=== PATIENT | male | born 1930 | race Two or more races ===

== ENCOUNTER 2020-03-13 16:48 | Inpatient (IN) | payer MEDICAID, MEDICARE, OTHER ==
[~2020-03-13] VITALS: Ht 195.6 cm; Wt 63.0 kg
[2020-03-13] MEDS ORDERED: FUROSEMIDE 40MG/4ML VIAL IV ONE (18:30)
[2020-03-13] MEDS ORDERED: ASPIRIN 81MG TABLET PO ONE (18:30)
[2020-03-13] MEDS ORDERED: NITROGLYCERIN OINT 1GM/INCH UDPKT TD ONE (18:30)
[2020-03-13 18:42] LABS: HEMATOCRIT. 54.4 % (42.0-52.0); HEMOGLOBIN. 16.9 g/dL (14.0-18.0); MEAN CORPUSCULAR HEMOGLOBIN 30.9 pg (28.0-32.0); MEAN CORPUSCULAR VOLUME 99.2 fL (80.0-94.0); MEAN PLATELET VOLUME 8.7 fl (7.4-10.4); PLATELET 114 x1000/uL (130-400); RED BLOOD CELL COUNT 5.48 mill/uL (4.7-6.1); RED CELL DISTRIBUTION WIDTH 16.5 % (11.6-14.6)
[2020-03-13 18:48] LABS: CHLORIDE 98 mEq/L (98-107)
[2020-03-13 18:55] LABS: PLATELET ESTIMATE DECREASED
[2020-03-13 18:57] LABS: INR 1.2; PARTIAL THROMBOPLASTIN TIME 28.5 sec (23.4-31.0)
[2020-03-13 19:18] LABS: BG BASE EXCESS 7.1 mmol/L (-2.0-2.0); BG CARBOXYHEMOGLOBIN 1.5 % (0.5-1.5); BG DEOXYHEMOGLOBIN 1.3 % (0.0-5.0); BG FRACTION INSPIRED OXYGEN 32; BG HCO3 ACT 39.9 mmol/L (22.0-26.0); BG METHEMOGLOBIN 0.5 % (0.0-1.5); BG OXYGEN SATURATION 98.7 % (92.0-98.5); BG OXYHEMOGLOBIN 96.7 % (94.0-97.0); BG PCO2 96.5 mmHg (35.0-45.0); BG PH 7.234 (7.350-7.450); BG SAMPLE SITE LEFT RADIAL; BG TOTAL HEMOGLOBIN 18.1 g/dL (12.0-18.0); BG VENT MODE NASAL CANNULA
[2020-03-13] MEDS ORDERED: CEFTRIAXONE 1 G PREMIX 50 ML IV ONE (20:00)
[2020-03-13] MEDS ORDERED: AZITHROMYCIN 500 MG in DEXT 5% WATER 250 ML IV ONE (20:00)
[2020-03-13] MEDS ORDERED: ETOMIDATE 2MG/ML 10ML VIAL IV ONE (21:00)
[2020-03-13] MEDS ORDERED: VANCOMYCIN 1 G PREMIX 200 ML IV ONE (21:00)
[2020-03-13] MEDS ORDERED: PIPERACILLIN/TAZ 3.375G PREMIX 50 ML IV ONE (21:00)
[2020-03-13] MEDS ORDERED: VECURONIUM BROMIDE 10 MG/VIAL IV ONE (21:00)
[2020-03-13] MEDS ORDERED: DEXAMETHASONE 10 MG/ML VIAL IV ONE (21:45)
[2020-03-13] MEDS ORDERED: PROPOFOL 10MG/ML 100ML 100 ML IV SCH (21:45)
[2020-03-13] MEDS ORDERED: ENOXAPARIN 80MG/0.8ML SYR SUBCUT ONE (21:45)
[2020-03-13 22:20] LABS: BG BASE EXCESS 9.5 mmol/L (-2.0-2.0); BG CARBOXYHEMOGLOBIN 1.3 % (0.5-1.5); BG DEOXYHEMOGLOBIN 0.2 % (0.0-5.0); BG FRACTION INSPIRED OXYGEN 100; BG HCO3 ACT 39.1 mmol/L (22.0-26.0); BG METHEMOGLOBIN 0.5 % (0.0-1.5); BG OXYGEN SATURATION 99.8 % (92.0-98.5); BG PCO2 71.2 mmHg (35.0-45.0); BG PH 7.358 (7.350-7.450); BG PO2 358.8 mmHg (75.0-100.0); BG TOTAL HEMOGLOBIN 18.8 g/dL (12.0-18.0); BG VENT MODE VENT - AC
[2020-03-14] MEDS ORDERED: AZITHROMYCIN 500 MG in DEXT 5% WATER 250 ML IV SCH ×2
[2020-03-14] MEDS ORDERED: VECURONIUM BROMIDE 10 MG/VIAL IV ONE
[2020-03-14] MEDS ORDERED: LORAZEPAM 2MG/ML CPJ IV PRN
[2020-03-14] MEDS ORDERED: PROPOFOL 10MG/ML 100ML 100 ML IV SCH
[2020-03-14] MEDS ORDERED: ETOMIDATE 2MG/ML 10ML VIAL IV ONE
[2020-03-14] MEDS ORDERED: CEFTRIAXONE 1 G PREMIX 50 ML IV SCH
[2020-03-14] MEDS ORDERED: DIPHENHYDRAMINE 50MG/ML VIAL IV PRN
[2020-03-14] MEDS ORDERED: MAGNESIUM/ALUMINUM HYDROXIDE/SIMETHICONE 30ML UDC PO PRN
[2020-03-14] MEDS ORDERED: CLONIDINE 0.1MG TABLET PO PRN
[2020-03-14 05:06] LABS: BASOPHILS % 0.6 % (0.0-2.0); EOSINOPHILS % 0.2 % (0.0-5.0); HEMATOCRIT. 53.8 % (42.0-52.0); LYMPHOCYTES % 11.6 % (20.0-50.0); MEAN CORPUSCULAR HEMOGLOBIN 31.2 pg (28.0-32.0); MEAN CORPUSCULAR VOLUME 98.8 fL (80.0-94.0); MEAN PLATELET VOLUME 8.1 fl (7.4-10.4); MONOCYTES % 13.1 % (2.0-8.0); NEUTROPHILS % 74.5 % (40.0-76.0); PLATELET 100 x1000/uL (130-400); RED BLOOD CELL COUNT 5.44 mill/uL (4.7-6.1); RED CELL DISTRIBUTION WIDTH 16.8 % (11.6-14.6)
[2020-03-14 05:14] LABS: CHLORIDE 98 mEq/L (98-107)
[2020-03-14] MEDS ORDERED: SODIUM CHLORIDE 0.9% INJ 3ML FLUSH IVF SCH (06:00)
[2020-03-14 11:51] LABS: HEMATOCRIT. 51.1 % (42.0-52.0); HEMOGLOBIN. 16.3 g/dL (14.0-18.0); MEAN CORPUSCULAR HEMOGLOBIN 31.2 pg (28.0-32.0); MEAN CORPUSCULAR VOLUME 97.8 fL (80.0-94.0); MEAN PLATELET VOLUME 8.4 fl (7.4-10.4); PLATELET 111 x1000/uL (130-400); RED BLOOD CELL COUNT 5.23 mill/uL (4.7-6.1); RED CELL DISTRIBUTION WIDTH 16.5 % (11.6-14.6)
[2020-03-14 12:29] LABS: PLATELET ESTIMATE DECREASED
[2020-03-14] MEDS ORDERED: OXYMETAZOLINE HCL NASAL SPRAY 15ML BOTHNSTRLS PRN (14:30)
[2020-03-14] MEDS ORDERED: CEFTRIAXONE 2 G PREMIX 50 ML IV SCH (14:30)
[2020-03-14] MEDS ORDERED: DEXT 5%/0.45% NACL 1000ML 1,000 ML IV SCH ×2 (14:41)
[2020-03-14] MEDS ORDERED: ONDANSETRON HCL 4MG/2ML INJ IV PRN ×2 (14:45)
[2020-03-14] MEDS ORDERED: GUAIFENESIN 200MG/10ML SUGAR FREE UDC PO PRN ×2 (14:45)
[2020-03-14] MEDS ORDERED: MORPHINE SULFATE 2 MG/ML CPJ (NOT FOR IM USE) IV PRN ×2 (14:45)
[2020-03-14] MEDS ORDERED: IPRATROPIUM/ALBUTEROL 0.5-3(2.5)MG/3ML NEB HHN PRN ×2 (14:45)
[2020-03-14] MEDS ORDERED: NOREPINEPHRINE 8MG/250ML PMX 250 ML IV PRN ×2 (14:45)
[2020-03-14] MEDS ORDERED: DOCUSATE SODIUM 100MG CAPSULE PO PRN ×2 (14:45)
[2020-03-14] MEDS ORDERED: ACETAMINOPHEN 325MG TABLET PO PRN ×2 (14:45)
[2020-03-14] MEDS ORDERED: HYDROCODONE/ACETAMINOPHEN 10/325MG TABLET PO PRN ×2 (14:45)
[2020-03-14] MEDS: DEXT 5%/0.45% NACL 1000ML 1,000 ML IV SCH (15:00)
[2020-03-14 19:22] LABS: CLARITY URINE CLEAR (CLEAR); COLOR URINE DARK YELLOW (YELLOW); KETONES URINE TRACE (NEGATIVE); LEUKOCYTE ESTERASE URINE 1+ (NEGATIVE); NITRITE URINE NEGATIVE (NEGATIVE); OCCULT BLOOD URINE 2+ (NEGATIVE); PH URINE >=9.0 (4.5-8.0); PROTEIN URINE 1+ (NEGATIVE); SPECIFIC GRAVITY URINE 1.026 (1.005-1.030)
[2020-03-14 20:11] LABS: *AMPHETAMINES SCREEN URINE NEGATIVE (NEGATIVE); *BENZODIAZEPINES SCREEN URINE NEGATIVE (NEGATIVE); *COCAINE SCREEN URINE NEGATIVE (NEGATIVE)
[2020-03-14 20:12] LABS: METHADONE URINE SCREEN NEGATIVE (NEGATIVE); OPIATES URINE SCREEN NEGATIVE (NEGATIVE); PHENCYCLIDINE URINE SCREEN NEGATIVE (NEGATIVE)
[2020-03-14 20:13] LABS: *BARBITURATES SCREEN URINE NEGATIVE (NEGATIVE); CANNABINOID URINE SCREEN NEGATIVE (NEGATIVE)
[2020-03-14] MEDS: SODIUM CHLORIDE 0.9% INJ 3ML FLUSH IVF SCH (22:41)
[2020-03-15] VITALS (35 sets, daily range): BP systolic 79–174; BP diastolic 46–107
[2020-03-15] MEDS ORDERED: AZITHROMYCIN 500 MG in DEXT 5% WATER 250 ML IV SCH (01:00)
[2020-03-15 04:49] LABS: BASOPHILS % 0.2 % (0.0-2.0); EOSINOPHILS % 0.5 % (0.0-5.0); HEMATOCRIT. 55.5 % (42.0-52.0); HEMOGLOBIN. 17.7 g/dL (14.0-18.0); LYMPHOCYTES % 9.2 % (20.0-50.0); MEAN CORPUSCULAR HEMOGLOBIN 30.9 pg (28.0-32.0); MEAN CORPUSCULAR VOLUME 96.7 fL (80.0-94.0); MEAN PLATELET VOLUME 8.5 fl (7.4-10.4); MONOCYTES % 13.4 % (2.0-8.0); NEUTROPHILS % 76.7 % (40.0-76.0); PLATELET 138 x1000/uL (130-400); RED BLOOD CELL COUNT 5.73 mill/uL (4.7-6.1); RED CELL DISTRIBUTION WIDTH 16.5 % (11.6-14.6)
[2020-03-15 04:54] LABS: CHLORIDE 95 mEq/L (98-107)
[2020-03-15 05:01] LABS: LDL CHOLESTEROL 62 mg/dL (5-100)
[2020-03-15 05:03] LABS: CREATINE KINASE 103 IU/L (39-308); HDL CHOLESTEROL 65 mg/dL (40-59)
[2020-03-15 05:05] LABS: CREATINE KINASE MB FRACTION 5.7 ng/mL (0.5-3.6)
[2020-03-15] MEDS: SODIUM CHLORIDE 0.9% INJ 3ML FLUSH IVF SCH ×3 (06:00→21:08)
[2020-03-15] MEDS: IPRATROPIUM/ALBUTEROL 0.5-3(2.5)MG/3ML NEB HHN SCH ×5 (08:21→20:38)
[2020-03-15] MEDS: METHYLPREDNISOLONE SOD SUCC 40 MG/ML VIAL IV SCH ×5 (08:29→21:36)
[2020-03-15] MEDS: PANTOPRAZOLE SODIUM 40 MG/VIAL IV SCH ×2 (08:29→09:34)
[2020-03-15 09:03] LABS: BG BASE EXCESS 10.7 mmol/L (-2.0-2.0); BG DEOXYHEMOGLOBIN 1.4 % (0.0-5.0); BG FRACTION INSPIRED OXYGEN 40; BG HCO3 ACT 33.8 mmol/L (22.0-26.0); BG METHEMOGLOBIN 0.5 % (0.0-1.5); BG OXYGEN SATURATION 98.6 % (92.0-98.5); BG OXYHEMOGLOBIN 97.1 % (94.0-97.0); BG PCO2 38.7 mmHg (35.0-45.0); BG PH 7.559 (7.350-7.450); BG SAMPLE SITE RIGHT RADIAL; BG TOTAL HEMOGLOBIN 18.3 g/dL (12.0-18.0); BG VENT MODE VENT - AC
[2020-03-15] MEDS: AZITHROMYCIN 500 MG in DEXT 5% WATER 250 ML IV SCH (09:34)
[2020-03-15] MEDS: PROPOFOL 10MG/ML 100ML 100 ML IV SCH ×2 (10:57→21:12)
[2020-03-15] MEDS ORDERED: PROPOFOL 10MG/ML 100ML 100 ML IV PRN (12:00)
[2020-03-15] MEDS ORDERED: CEFTRIAXONE 2 G in DEXTROSE 5% WATER 50 ML IV SCH (18:00)
[2020-03-15] MEDS: CEFTRIAXONE 2 G in DEXTROSE 5% WATER 50 ML IV SCH (19:42)
[2020-03-16] VITALS (94 sets, daily range): BP systolic 73–204; BP diastolic 49–125
[2020-03-16] MEDS: IPRATROPIUM/ALBUTEROL 0.5-3(2.5)MG/3ML NEB HHN SCH ×7 (00:26→23:59)
[2020-03-16] MEDS: DEXT 5%/0.45% NACL 1000ML 1,000 ML IV SCH ×2 (02:43→14:45)
[2020-03-16] MEDS: PROPOFOL 10MG/ML 100ML 100 ML IV SCH ×2 (02:43→09:20)
[2020-03-16] MEDS: SODIUM CHLORIDE 0.9% INJ 3ML FLUSH IVF SCH ×3 (05:13→21:09)
[2020-03-16 05:22] LABS: HEMATOCRIT. 50.5 % (42.0-52.0); HEMOGLOBIN. 16.3 g/dL (14.0-18.0); MEAN CORPUSCULAR VOLUME 96.2 fL (80.0-94.0); MEAN PLATELET VOLUME 8.7 fl (7.4-10.4); PLATELET 127 x1000/uL (130-400); RED BLOOD CELL COUNT 5.26 mill/uL (4.7-6.1); RED CELL DISTRIBUTION WIDTH 16.6 % (11.6-14.6)
[2020-03-16 05:27] LABS: CHLORIDE 94 mEq/L (98-107)
[2020-03-16] MEDS: METHYLPREDNISOLONE SOD SUCC 40 MG/ML VIAL IV SCH ×3 (06:12→21:32)
[2020-03-16] MEDS ORDERED: NOREPINEPHRINE 8 MG in DEXT 5% WATER 242 ML IV PRN (07:45)
[2020-03-16 07:53] LABS: PLATELET ESTIMATE SLIGHTLY DECREASED
[2020-03-16] MEDS ORDERED: POTASSIUM CHLORIDE 20MEQ TABLET SR PO ONE (08:00)
[2020-03-16] MEDS ORDERED: POTASSIUM CHLORIDE 20MEQ/PACKET GT NR (08:15)
[2020-03-16 08:30] LABS: BG BASE EXCESS 10.4 mmol/L (-2.0-2.0); BG CARBOXYHEMOGLOBIN 3.1 % (0.5-1.5); BG DEOXYHEMOGLOBIN 4.3 % (0.0-5.0); BG HCO3 ACT 34.3 mmol/L (22.0-26.0); BG METHEMOGLOBIN 0.1 % (0.0-1.5); BG OXYHEMOGLOBIN 92.5 % (94.0-97.0); BG PCO2 42.5 mmHg (35.0-45.0); BG PH 7.525 (7.350-7.450); BG PO2 75.1 mmHg (75.0-100.0); BG SAMPLE SITE RIGHT BRACHIAL; BG TOTAL HEMOGLOBIN 15.5 g/dL (12.0-18.0); BG VENT MODE VENT - AC
[2020-03-16] MEDS: PANTOPRAZOLE SODIUM 40 MG/VIAL IV SCH (08:35)
[2020-03-16] MEDS: AZITHROMYCIN 500 MG in DEXT 5% WATER 250 ML IV SCH (09:37)
[2020-03-16] MEDS ORDERED: MIDODRINE HCL 5MG TABLET PO SCH (10:15)
[2020-03-16] MEDS: BLOOD SUGAR DIAGNOSTIC STRIP TEST SCH ×3 (11:30→23:01)
[2020-03-16] MEDS: INSULIN LISPRO 100 UNITS/ML SUBCUT SCH ×3 (12:00→23:02)
[2020-03-16] MEDS: MIDODRINE HCL 5MG TABLET NG SCH ×2 (13:51→21:28)
[2020-03-16] MEDS: CEFTRIAXONE 2 G in DEXTROSE 5% WATER 50 ML IV SCH (18:01)
[2020-03-16] MEDS: LORAZEPAM 2MG/ML CPJ IV PRN (19:26)
[2020-03-17] VITALS (58 sets, daily range): BP systolic 92–168; BP diastolic 60–95
[2020-03-17] MEDS: LORAZEPAM 2MG/ML CPJ IV PRN (01:56)
[2020-03-17] MEDS: IPRATROPIUM/ALBUTEROL 0.5-3(2.5)MG/3ML NEB HHN SCH ×5 (04:28→20:36)
[2020-03-17] MEDS: BLOOD SUGAR DIAGNOSTIC STRIP TEST SCH ×4 (05:07→23:58)
[2020-03-17] MEDS: SODIUM CHLORIDE 0.9% INJ 3ML FLUSH IVF SCH ×3 (05:07→22:03)
[2020-03-17] MEDS: INSULIN LISPRO 100 UNITS/ML SUBCUT SCH ×4 (05:08→23:58)
[2020-03-17] MEDS: MIDODRINE HCL 5MG TABLET NG SCH ×3 (05:10→22:00)
[2020-03-17] MEDS: DEXTROSE 50% WATER 50ML SYRINGE IV PRN (05:10)
[2020-03-17] MEDS: METHYLPREDNISOLONE SOD SUCC 40 MG/ML VIAL IV SCH ×2 (05:35→20:50)
[2020-03-17 06:20] LABS: HEMATOCRIT. 50.1 % (42.0-52.0); HEMOGLOBIN. 15.9 g/dL (14.0-18.0); MEAN CORPUSCULAR VOLUME 97.6 fL (80.0-94.0); MEAN PLATELET VOLUME 8.5 fl (7.4-10.4); PLATELET 102 x1000/uL (130-400); RED BLOOD CELL COUNT 5.13 mill/uL (4.7-6.1); RED CELL DISTRIBUTION WIDTH 16.1 % (11.6-14.6)
[2020-03-17 06:32] LABS: CHLORIDE 96 mEq/L (98-107)
[2020-03-17] MEDS: AZITHROMYCIN 500 MG in DEXT 5% WATER 250 ML IV SCH (08:27)
[2020-03-17] MEDS: PANTOPRAZOLE SODIUM 40 MG/VIAL IV SCH ×2 (08:27→17:50)
[2020-03-17 10:01] LABS: BG CARBOXYHEMOGLOBIN 0.6 % (0.5-1.5); BG DEOXYHEMOGLOBIN 5.1 % (0.0-5.0); BG FRACTION INSPIRED OXYGEN 40; BG HCO3 ACT 38.2 mmol/L (22.0-26.0); BG METHEMOGLOBIN 0.3 % (0.0-1.5); BG OXYGEN SATURATION 94.9 % (92.0-98.5); BG PCO2 58.7 mmHg (35.0-45.0); BG PH 7.431 (7.350-7.450); BG PO2 75.9 mmHg (75.0-100.0); BG SAMPLE SITE RIGHT RADIAL; BG TOTAL HEMOGLOBIN 16.7 g/dL (12.0-18.0); BG VENT MODE VENT - SIMV
[2020-03-17 10:07] LABS: PLATELET ESTIMATE SLIGHTLY DECREASED
[2020-03-17 13:47] LABS: BG BASE EXCESS 8.6 mmol/L (-2.0-2.0); BG CARBOXYHEMOGLOBIN 1.3 % (0.5-1.5); BG DEOXYHEMOGLOBIN 4.2 % (0.0-5.0); BG FRACTION INSPIRED OXYGEN 40; BG HCO3 ACT 35.1 mmol/L (22.0-26.0); BG METHEMOGLOBIN 0.3 % (0.0-1.5); BG OXYGEN SATURATION 95.7 % (92.0-98.5); BG OXYHEMOGLOBIN 94.2 % (94.0-97.0); BG PCO2 54.3 mmHg (35.0-45.0); BG PH 7.428 (7.350-7.450); BG PO2 79.8 mmHg (75.0-100.0); BG SAMPLE SITE RIGHT BRACHIAL; BG TOTAL HEMOGLOBIN 16.5 g/dL (12.0-18.0); BG VENT MODE VENT - CPAP
[2020-03-17] MEDS: DEXT 5%/0.45% NACL 1000ML 1,000 ML IV SCH (14:48)
[2020-03-17] MEDS: CEFTRIAXONE 2 G in DEXTROSE 5% WATER 50 ML IV SCH (17:50)
[2020-03-17] MEDS: THROAT LOZENGES-BENZOCAINE/MENTH/CETYLPYRD CL LOZENGES MM PRN (20:51)
[2020-03-18] VITALS (29 sets, daily range): BP systolic 127–189; BP diastolic 70–116
[2020-03-18] MEDS: IPRATROPIUM/ALBUTEROL 0.5-3(2.5)MG/3ML NEB HHN SCH ×6 (00:53→19:55)
[2020-03-18] MEDS: LORAZEPAM 2MG/ML CPJ IV PRN ×2 (01:46→09:54)
[2020-03-18] MEDS: THROAT LOZENGES-BENZOCAINE/MENTH/CETYLPYRD CL LOZENGES MM PRN (01:53)
[2020-03-18] MEDS: CLONIDINE 0.1MG TABLET PO PRN ×2 (04:47→22:34)
[2020-03-18 05:09] LABS: HEMATOCRIT. 45.7 % (42.0-52.0); HEMOGLOBIN. 14.7 g/dL (14.0-18.0); MEAN CORPUSCULAR HEMOGLOBIN 31.1 pg (28.0-32.0); MEAN CORPUSCULAR VOLUME 96.3 fL (80.0-94.0); MEAN PLATELET VOLUME 8.8 fl (7.4-10.4); PLATELET 125 x1000/uL (130-400); RED BLOOD CELL COUNT 4.75 mill/uL (4.7-6.1); RED CELL DISTRIBUTION WIDTH 15.8 % (11.6-14.6)
[2020-03-18] MEDS: SODIUM CHLORIDE 0.9% INJ 3ML FLUSH IVF SCH ×3 (05:15→22:19)
[2020-03-18] MEDS: MIDODRINE HCL 5MG TABLET NG SCH (05:15)
[2020-03-18 05:17] LABS: CHLORIDE 95 mEq/L (98-107)
[2020-03-18] MEDS: INSULIN LISPRO 100 UNITS/ML SUBCUT SCH ×3 (05:33→18:00)
[2020-03-18] MEDS: BLOOD SUGAR DIAGNOSTIC STRIP TEST SCH ×3 (05:33→18:15)
[2020-03-18 09:30] LABS: PLATELET ESTIMATE SLIGHTLY DECREASED
[2020-03-18] MEDS: METHYLPREDNISOLONE SOD SUCC 40 MG/ML VIAL IV SCH ×2 (09:35→20:47)
[2020-03-18] MEDS: PANTOPRAZOLE SODIUM 40 MG/VIAL IV SCH (09:35)
[2020-03-18] MEDS ORDERED: HYDRALAZINE HCL 50MG TABLET PO SCH (14:00)
[2020-03-18] MEDS: DEXT 5%/0.45% NACL 1000ML 1,000 ML IV SCH ×2 (14:45→22:23)
[2020-03-18] MEDS: CEFTRIAXONE 2 G in DEXTROSE 5% WATER 50 ML IV SCH (18:15)
[2020-03-18] MEDS: HALOPERIDOL LACTATE 5MG/ML VIAL IM PRN (19:55)
[2020-03-19] VITALS (12 sets, daily range): BP systolic 119–157; BP diastolic 67–94
[2020-03-19] MEDS: IPRATROPIUM/ALBUTEROL 0.5-3(2.5)MG/3ML NEB HHN SCH ×6 (00:05→20:48)
[2020-03-19] MEDS: BLOOD SUGAR DIAGNOSTIC STRIP TEST SCH ×5 (05:55→23:32)
[2020-03-19] MEDS: INSULIN LISPRO 100 UNITS/ML SUBCUT SCH ×5 (05:55→23:41)
[2020-03-19] MEDS: SODIUM CHLORIDE 0.9% INJ 3ML FLUSH IVF SCH ×3 (05:55→21:51)
[2020-03-19 06:39] LABS: HEMATOCRIT. 48.6 % (42.0-52.0); HEMOGLOBIN. 15.7 g/dL (14.0-18.0); MEAN CORPUSCULAR HEMOGLOBIN 31.3 pg (28.0-32.0); MEAN CORPUSCULAR VOLUME 97.2 fL (80.0-94.0); MEAN PLATELET VOLUME 8.9 fl (7.4-10.4); PLATELET 124 x1000/uL (130-400); RED CELL DISTRIBUTION WIDTH 15.5 % (11.6-14.6)
[2020-03-19 07:01] LABS: CHLORIDE 95 mEq/L (98-107)
[2020-03-19] MEDS: METHYLPREDNISOLONE SOD SUCC 40 MG/ML VIAL IV SCH (09:34)
[2020-03-19] MEDS: PANTOPRAZOLE SODIUM 40 MG/VIAL IV SCH (09:34)
[2020-03-19 12:14] LABS: PLATELET ESTIMATE NORMAL
[2020-03-19 15:49] LABS: BG BASE EXCESS 9.1 mmol/L (-2.0-2.0); BG CARBOXYHEMOGLOBIN 2.3 % (0.5-1.5); BG DEOXYHEMOGLOBIN 24.8 % (0.0-5.0); BG FRACTION INSPIRED OXYGEN 21; BG HCO3 ACT 38.4 mmol/L (22.0-26.0); BG METHEMOGLOBIN 0.3 % (0.0-1.5); BG OXYGEN SATURATION 74.5 % (92.0-98.5); BG OXYHEMOGLOBIN 72.6 % (94.0-97.0); BG PCO2 72.5 mmHg (35.0-45.0); BG PH 7.342 (7.350-7.450); BG PO2 38.4 mmHg (75.0-100.0); BG TOTAL HEMOGLOBIN 16.2 g/dL (12.0-18.0); BG VENT MODE ROOM AIR
[2020-03-19] MEDS: BUDESONIDE 0.5MG/2ML NEB HHN SCH (16:37)
[2020-03-19] MEDS: CEFTRIAXONE 2 G in DEXTROSE 5% WATER 50 ML IV SCH (18:51)
[2020-03-20] VITALS (13 sets, daily range): BP systolic 142–193; BP diastolic 82–115
[2020-03-20] MEDS: BUDESONIDE 0.5MG/2ML NEB HHN SCH ×3 (00:31→21:44)
[2020-03-20] MEDS: IPRATROPIUM/ALBUTEROL 0.5-3(2.5)MG/3ML NEB HHN SCH ×6 (00:31→21:45)
[2020-03-20] MEDS: SODIUM CHLORIDE 0.9% INJ 3ML FLUSH IVF SCH ×3 (06:00→22:00)
[2020-03-20] MEDS: BLOOD SUGAR DIAGNOSTIC STRIP TEST SCH ×4 (06:00→23:37)
[2020-03-20] MEDS: INSULIN LISPRO 100 UNITS/ML SUBCUT SCH ×4 (06:00→23:48)
[2020-03-20 06:52] LABS: HEMATOCRIT. 45.6 % (42.0-52.0); HEMOGLOBIN. 14.7 g/dL (14.0-18.0); MEAN CORPUSCULAR HEMOGLOBIN 31.2 pg (28.0-32.0); MEAN PLATELET VOLUME 8.8 fl (7.4-10.4); PLATELET 135 x1000/uL (130-400); RED BLOOD CELL COUNT 4.71 mill/uL (4.7-6.1); RED CELL DISTRIBUTION WIDTH 15.3 % (11.6-14.6)
[2020-03-20 06:55] LABS: CHLORIDE 95 mEq/L (98-107)
[2020-03-20 08:42] LABS: PLATELET ESTIMATE NORMAL
[2020-03-20] MEDS ORDERED: METHYLPREDNISOLONE SOD SUCC 40 MG/ML VIAL IV SCH (09:00)
[2020-03-20] MEDS: PANTOPRAZOLE SODIUM 40 MG/VIAL IV SCH (09:49)
[2020-03-20] MEDS: CLONIDINE 0.1MG TABLET PO PRN ×3 (09:58→21:59)
[2020-03-20 11:07] LABS: BG BASE EXCESS 12.1 mmol/L (-2.0-2.0); BG DEOXYHEMOGLOBIN 5.2 % (0.0-5.0); BG HCO3 ACT 42.3 mmol/L (22.0-26.0); BG METHEMOGLOBIN 0.2 % (0.0-1.5); BG OXYGEN SATURATION 94.7 % (92.0-98.5); BG OXYHEMOGLOBIN 92.6 % (94.0-97.0); BG PCO2 81.1 mmHg (35.0-45.0); BG PH 7.335 (7.350-7.450); BG SAMPLE SITE RIGHT BRACHIAL; BG TOTAL HEMOGLOBIN 15.9 g/dL (12.0-18.0); BG VENT MODE OXYGENATOR
[2020-03-20] MEDS: DEXT 5%/0.45% NACL 1000ML 1,000 ML IV SCH (17:00)
[2020-03-20] MEDS: CEFTRIAXONE 2 G in DEXTROSE 5% WATER 50 ML IV SCH (17:24)
[2020-03-20] MEDS: METHYLPREDNISOLONE SOD SUCC 40 MG/ML VIAL IV SCH (17:27)
[2020-03-20] MEDS: HALOPERIDOL LACTATE 5MG/ML VIAL IM PRN (20:41)
[2020-03-20] MEDS: DIPHENHYDRAMINE 50MG/ML VIAL IV PRN (21:59)
[2020-03-21] VITALS (12 sets, daily range): BP systolic 105–160; BP diastolic 50–95
[2020-03-21] MEDS: METHYLPREDNISOLONE SOD SUCC 40 MG/ML VIAL IV SCH ×3 (00:05→16:54)
[2020-03-21] MEDS: IPRATROPIUM/ALBUTEROL 0.5-3(2.5)MG/3ML NEB HHN SCH ×6 (01:09→20:35)
[2020-03-21] MEDS: BLOOD SUGAR DIAGNOSTIC STRIP TEST SCH ×3 (05:52→18:21)
[2020-03-21] MEDS: DIPHENHYDRAMINE 50MG/ML VIAL IV PRN ×3 (05:53→21:48)
[2020-03-21] MEDS: SODIUM CHLORIDE 0.9% INJ 3ML FLUSH IVF SCH (05:57)
[2020-03-21] MEDS: INSULIN LISPRO 100 UNITS/ML SUBCUT SCH ×3 (06:00→18:00)
[2020-03-21] MEDS: DEXTROSE 50% WATER 50ML SYRINGE IV PRN (06:03)
[2020-03-21] MEDS: HALOPERIDOL LACTATE 5MG/ML VIAL IM PRN ×2 (06:08→14:19)
[2020-03-21] MEDS: BUDESONIDE 0.5MG/2ML NEB HHN SCH ×2 (08:12→20:37)
[2020-03-21] MEDS: PANTOPRAZOLE SODIUM 40 MG/VIAL IV SCH (08:42)
[2020-03-21 09:37] LABS: BG BASE EXCESS 10.9 mmol/L (-2.0-2.0); BG CARBOXYHEMOGLOBIN 1.8 % (0.5-1.5); BG DEOXYHEMOGLOBIN 5.9 % (0.0-5.0); BG FRACTION INSPIRED OXYGEN 32; BG HCO3 ACT 40.9 mmol/L (22.0-26.0); BG METHEMOGLOBIN 0.3 % (0.0-1.5); BG PCO2 77.6 mmHg (35.0-45.0); BG PO2 68.8 mmHg (75.0-100.0); BG SAMPLE SITE RIGHT RADIAL; BG TOTAL HEMOGLOBIN 16.6 g/dL (12.0-18.0); BG VENT MODE NASAL CANNULA
[2020-03-21] MEDS: SODIUM CHLORIDE 0.9% INJ 10ML FLUSH IVF SCH ×2 (14:19→20:21)
[2020-03-21] MEDS: DEXT 5%/0.45% NACL 1000ML 1,000 ML IV SCH (14:20)
[2020-03-21 16:01] LABS: HEMATOCRIT. 47.6 % (42.0-52.0); HEMOGLOBIN. 15.3 g/dL (14.0-18.0); MEAN CORPUSCULAR HEMOGLOBIN 31.2 pg (28.0-32.0); MEAN CORPUSCULAR VOLUME 97.5 fL (80.0-94.0); MEAN PLATELET VOLUME 8.6 fl (7.4-10.4); PLATELET 137 x1000/uL (130-400); RED BLOOD CELL COUNT 4.88 mill/uL (4.7-6.1); RED CELL DISTRIBUTION WIDTH 15.2 % (11.6-14.6)
[2020-03-21 16:19] LABS: CHLORIDE 91 mEq/L (98-107)
[2020-03-21 16:56] LABS: PLATELET ESTIMATE NORMAL
[2020-03-21] MEDS: CEFTRIAXONE 2 G in DEXTROSE 5% WATER 50 ML IV SCH (17:48)
[2020-03-22] VITALS (12 sets, daily range): BP systolic 112–166; BP diastolic 69–90
[2020-03-22] MEDS: METHYLPREDNISOLONE SOD SUCC 40 MG/ML VIAL IV SCH ×3 (00:10→16:35)
[2020-03-22] MEDS: BLOOD SUGAR DIAGNOSTIC STRIP TEST SCH ×4 (00:10→17:23)
[2020-03-22] MEDS: IPRATROPIUM/ALBUTEROL 0.5-3(2.5)MG/3ML NEB HHN SCH ×6 (00:31→20:56)
[2020-03-22] MEDS: SODIUM CHLORIDE 0.9% INJ 10ML FLUSH IVF SCH ×3 (05:08→20:44)
[2020-03-22] MEDS: INSULIN LISPRO 100 UNITS/ML SUBCUT SCH ×4 (05:08→17:23)
[2020-03-22 06:12] LABS: CHLORIDE 91 mEq/L (98-107)
[2020-03-22 06:34] LABS: HEMATOCRIT. 43.9 % (42.0-52.0); HEMOGLOBIN. 14.2 g/dL (14.0-18.0); MEAN CORPUSCULAR HEMOGLOBIN 31.4 pg (28.0-32.0); MEAN CORPUSCULAR VOLUME 96.7 fL (80.0-94.0); MEAN PLATELET VOLUME 8.6 fl (7.4-10.4); PLATELET 146 x1000/uL (130-400); RED BLOOD CELL COUNT 4.54 mill/uL (4.7-6.1); RED CELL DISTRIBUTION WIDTH 14.8 % (11.6-14.6)
[2020-03-22] MEDS: PANTOPRAZOLE SODIUM 40 MG/VIAL IV SCH (08:09)
[2020-03-22 08:40] LABS: PLATELET ESTIMATE NORMAL
[2020-03-22] MEDS: BUDESONIDE 0.5MG/2ML NEB HHN SCH (08:54)
[2020-03-22 10:44] LABS: BG BASE EXCESS 13.1 mmol/L (-2.0-2.0); BG CARBOXYHEMOGLOBIN 1.3 % (0.5-1.5); BG DEOXYHEMOGLOBIN 6.6 % (0.0-5.0); BG FRACTION INSPIRED OXYGEN 28; BG HCO3 ACT 42.4 mmol/L (22.0-26.0); BG METHEMOGLOBIN 0.2 % (0.0-1.5); BG OXYGEN SATURATION 93.3 % (92.0-98.5); BG OXYHEMOGLOBIN 91.9 % (94.0-97.0); BG PCO2 74.3 mmHg (35.0-45.0); BG PH 7.374 (7.350-7.450); BG PO2 65.2 mmHg (75.0-100.0); BG SAMPLE SITE RIGHT RADIAL; BG TOTAL HEMOGLOBIN 15.7 g/dL (12.0-18.0); BG VENT MODE NASAL CANNULA
[2020-03-22] MEDS: DEXT 5%/0.45% NACL 1000ML 1,000 ML IV SCH (15:26)
[2020-03-22] MEDS: CLONIDINE 0.1MG TABLET PO PRN (16:35)
[2020-03-22] MEDS: DEXTROSE 50% WATER 50ML SYRINGE IV PRN (17:49)
[2020-03-22] MEDS: CEFTRIAXONE 2 G in DEXTROSE 5% WATER 50 ML IV SCH (17:50)
[2020-03-23] VITALS (12 sets, daily range): BP systolic 127–152; BP diastolic 70–88
[2020-03-23] MEDS: IPRATROPIUM/ALBUTEROL 0.5-3(2.5)MG/3ML NEB HHN SCH ×5 (00:18→16:25)
[2020-03-23] MEDS: BLOOD SUGAR DIAGNOSTIC STRIP TEST SCH ×4 (00:25→17:40)
[2020-03-23] MEDS: METHYLPREDNISOLONE SOD SUCC 40 MG/ML VIAL IV SCH ×2 (00:25→08:41)
[2020-03-23] MEDS: SODIUM CHLORIDE 0.9% INJ 10ML FLUSH IVF SCH ×3 (05:41→20:18)
[2020-03-23] MEDS: INSULIN LISPRO 100 UNITS/ML SUBCUT SCH ×4 (05:41→17:40)
[2020-03-23 05:57] LABS: HEMATOCRIT. 42.5 % (42.0-52.0); HEMOGLOBIN. 13.8 g/dL (14.0-18.0); MEAN CORPUSCULAR HEMOGLOBIN 31.3 pg (28.0-32.0); MEAN CORPUSCULAR VOLUME 96.2 fL (80.0-94.0); MEAN PLATELET VOLUME 9.1 fl (7.4-10.4); PLATELET 147 x1000/uL (130-400); RED BLOOD CELL COUNT 4.41 mill/uL (4.7-6.1); RED CELL DISTRIBUTION WIDTH 14.7 % (11.6-14.6)
[2020-03-23 06:47] LABS: CHLORIDE 91 mEq/L (98-107)
[2020-03-23] MEDS: PANTOPRAZOLE SODIUM 40 MG/VIAL IV SCH (08:41)
[2020-03-23 10:32] LABS: BG BASE EXCESS 11.1 mmol/L (-2.0-2.0); BG CARBOXYHEMOGLOBIN 1.5 % (0.5-1.5); BG DEOXYHEMOGLOBIN 3.5 % (0.0-5.0); BG FRACTION INSPIRED OXYGEN 50; BG HCO3 ACT 39.3 mmol/L (22.0-26.0); BG METHEMOGLOBIN 0.3 % (0.0-1.5); BG OXYGEN SATURATION 96.4 % (92.0-98.5); BG OXYHEMOGLOBIN 94.7 % (94.0-97.0); BG PCO2 67.1 mmHg (35.0-45.0); BG PH 7.385 (7.350-7.450); BG PO2 84.3 mmHg (75.0-100.0); BG SAMPLE SITE RIGHT RADIAL; BG TOTAL HEMOGLOBIN 14.9 g/dL (12.0-18.0); BG VENT MODE MASK - BIPAP
[2020-03-23] MEDS: DEXT 5%/0.45% NACL 1000ML 1,000 ML IV SCH (14:46)
[2020-03-23] MEDS ORDERED: METHYLPREDNISOLONE SOD SUCC 40 MG/ML VIAL IV SCH (21:00)
[2020-03-23 22:14] LABS: PLATELET ESTIMATE NORMAL
== END 2020-03-23 21:40 | DRG 208 ==
LOC: ER 16:48 → EDBEDREQSVC 22:02 → EDBEDREQTM 22:02 → MICUNO 03-14 00:26 → EDBEDREQDT 03-14 00:34 → EDBEDREQTM 03-14 00:34 → EDBEDREQ 03-14 00:34 → ENRESERV 03-15 15:23 → CANRESERV 03-15 15:23 → ENRESERV 03-15 15:34 → 5EST 03-18 21:04
PROVIDERS: ADMIT Internal Medicine; ATTEND Internal Medicine
PROC: 5A1945Z Respiratory Ventilation, 24-96 Consecutive Hours (ICD-10-PCS; principal; 2020-03-17)
PROC: 0BH18EZ Insertion of Endotracheal Airway into Trachea, Via Natural or Artificial Opening Endoscopic (ICD-10-PCS; 2020-03-17)
PROC: 5A09457 Assistance with Respiratory Ventilation, 24-96 Consecutive Hours, Continuous Positive Airway Pressure (ICD-10-PCS; 2020-03-19)
DX: J96.01 Acute respiratory failure with hypoxia (principal); I21.4 Non-ST elevation (NSTEMI) myocardial infarction; J18.9 Pneumonia, unspecified organism; I50.31 Acute diastolic (congestive) heart failure; J44.1 Chronic obstructive pulmonary disease with (acute) exacerbation; E87.2 Acidosis; J44.0 Chronic obstructive pulmonary disease with (acute) lower respiratory infection; Z68.1 Body mass index [BMI] 19.9 or less, adult; E44.0 Moderate protein-calorie malnutrition; J96.02 Acute respiratory failure with hypercapnia; I11.0 Hypertensive heart disease with heart failure; Z20.828 Contact with and (suspected) exposure to other viral communicable diseases; D69.6 Thrombocytopenia, unspecified; D72.819 Decreased white blood cell count, unspecified; E11.649 Type 2 diabetes mellitus with hypoglycemia without coma; E11.65 Type 2 diabetes mellitus with hyperglycemia; I27.20 Pulmonary hypertension, unspecified; I71.9 Aortic aneurysm of unspecified site, without rupture; M10.9 Gout, unspecified; Z79.01 Long term (current) use of anticoagulants; Z98.890 Other specified postprocedural states; Z85.038 Personal history of other malignant neoplasm of large intestine; I25.2 Old myocardial infarction; Z87.891 Personal history of nicotine dependence; Z90.49 Acquired absence of other specified parts of digestive tract; Z79.899 Other long term (current) drug therapy
CPT/HCPCS: 31500; 36415; 36600; 71045; 80048; 80053; 80061; 81003; 82040; 82375; 82550; 82553; 82805; 82962; 83036; 83605; 83735; 83880; 84134; 84484; 84550; 85025; 87635; 92610; 93005; 93306; 94002; 94003; 94640; 94660; 97110; 97162; 97530; 99291; A6261; C9113; J0456; J0696; J1100; J1200; J1630; J1650; J1815; J1940; J2060; J2270; J2405; J2543; J2704; J2920; J3370; J3490; J7060; J7626